=== PATIENT | male | born 1970 | race American Indian/Alaskan Native ===

== ENCOUNTER 2020-11-24 10:16 | Emergency (ER) | payer OTHER ==
[2020-11-24 10:26] VITALS: BP 135/88
--- NOTE | 2020-11-24 10:50 | Emergency Department Report ---
ED General Adult HPI - General Chief complaint: Back Pain/Injury Stated complaint: BACK PAIN Time Seen by Provider: 11/24/20 10:38 Source: patient Mode of arrival: Ambulatory Limitations: No Limitations - History of Present Illness Initial comments: 50-year-old -Citizen Of [place] male patient presents with complaints of low back pain x1 month. Patient denies any recent injuries, however states he has had recurrent chronic back pain due to an injury in 2017 involved in a herniated disc. He reports intermittent numbness in his right foot, but denies any weakness in his legs or saddle paresthesias, loss of bladder/bowel control, history of cancer, hematochezia/hematuria, or difficulty with ambulation. Patient states muscle relaxers and anti-inflammatories sometimes help. No abdominal pain per patient. -: Gradual - Related Data Previous Rx's Medication Instructions Recorded Last Taken Type Acetaminophen/Codeine [Tylenol 1 tab PO Q8H PRN #8 tab 11/24/20 Unknown Rx /Codeine # 3 tab] Diclofenac Sodium 75 mg PO BID PRN #14 tablet. 11/24/20 Unknown Rx methocarbamoL [Methocarbamol] 1,000 mg PO TID PRN #30 tablet 11/24/20 Unknown Rx Allergies Allergy/AdvReac Type Severity Reaction Status Date / Time No Known Allergies Allergy Unverified 11/24/20 10:23 ED Review of Systems ROS: Stated complaint: BACK PAIN Other details as noted in HPI Constitutional: denies: chills, fever, malaise Respiratory: denies: shortness of breath Cardiovascular: denies: chest pain Gastrointestinal: denies: abdominal pain, hematochezia Genitourinary: denies: urgency, dysuria, frequency, hematuria Musculoskeletal: back pain. denies: joint swelling, arthralgia Skin: denies: change in color Neurological: abnormal gait (Patient currently on crutches due to left foot fracture). denies: weakness Hematological/Lymphatic: denies: easy bruising ED Past Medical Hx - Past Medical History Previous Medical History?: No - Surgical History Past Surgical History?: No - Social History Smoking Status: Never Smoker Substance Use Type: None - Medications Home Medications: Home Medications Medication Instructions Recorded Confirmed Last Taken Type Acetaminophen/Codeine [Tylenol 1 tab PO Q8H PRN #8 tab 11/24/20 Unknown Rx /Codeine # 3 tab] Diclofenac Sodium 75 mg PO BID PRN #14 tablet. 11/24/20 Unknown Rx methocarbamoL [Methocarbamol] 1,000 mg PO TID PRN #30 tablet 11/24/20 Unknown Rx ED Physical Exam - General Limitations: No Limitations General appearance: alert, in no apparent distress - Head Head exam: Present: atraumatic, normocephalic - Eye Eye exam: Present: normal appearance - Respiratory Respiratory exam: Absent: respiratory distress - Cardiovascular Cardiovascular Exam: Present: regular rate - GI/Abdominal GI/Abdominal exam: Present: soft. Absent: tenderness - Back Exam Back exam: Present: full ROM, paraspinal tenderness (Lumbar), vertebral tenderness (Lumbar) - Expanded Back Exam Expanded Back exam: Absent: saddle anesthesia Back exam: Sciatic Notch Tenderness: Left, Right - Neurological Exam Neurological exam: Present: alert, oriented X3, other (Patient ambulatory via crutches; has boot on left foot). Absent: motor sensory deficit - Expanded Neurological Exam Expanded Sensory exam: Lower Extremity Light Touch: Normal Motor strength exam: RLE: 5, LLE: 5 - Psychiatric Psychiatric exam: Present: normal affect, normal mood - Skin Skin exam: Present: warm, dry, intact, normal color. Absent: rash, cyanosis, diaphoretic ED Course Vital Signs 11/24/20 10:23 Temperature 98.3 F Pulse Rate 68 Respiratory 20 Rate Blood Pressure 135/88 O2 Sat by Pulse 98 Oximetry ED Medical Decision Making - Radiology Data Radiology results: report reviewed LUMBOSACRAL SPINE 3 VIEWS INDICATION: pain, no injury. COMPARISON: None. IMPRESSION: Normal alignment. 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 A left lateral near bridging osteophyte is noted at L2-3. The SI joints are unremarkable. No acute osseous or soft tissue abnormality. - Medical Decision Making 50-year-old -Citizen Of [place] male patient presents with complaints of low back pain x1 month. Patient denies any recent injuries, however states he has had recurrent chronic back pain due to an injury in 2017 involved in a herniated disc. He reports intermittent numbness in his right foot, but denies any weakness in his legs or saddle paresthesias, loss of bladder/bowel control, history of cancer, hematochezia/hematuria, or difficulty with ambulation. Patient states muscle relaxers and anti-inflammatories sometimes help. No abdominal pain per patient. X-ray shows moderate DJD at all levels of the lumbar spine without any acute bony abnormalities. Will treat for sciatica with NSAIDs and muscle relaxers. Pain significantly improved with Toradol shot given here in ED per patient. Recommend follow-up with primary care doctor and physical therapy for further evaluation and treatment. Patient is otherwise well-appearing and stable for discharge home. Strict return precautions were discussed in detail with patient who verbalizes understanding. Critical care attestation.: If time is entered above; I have spent that time in minutes in the direct care of this critically ill patient, excluding procedure time. ED Disposition Clinical Impression: Low back pain with bilateral sciatica Qualifiers: Chronicity: chronic Back pain laterality: bilateral Qualified Code(s): M54.42 - Lumbago with sciatica, left side Disposition: TO HOME OR SELFCARE Is pt being admited?: No Condition: Stable Instructions: Sciatica Prescriptions: Diclofenac Sodium 75 mg PO BID PRN #14 tablet. PRN Reason: pain methocarbamoL [Methocarbamol] 1,000 mg PO TID PRN #30 tablet PRN Reason: muscle spasm/tightness Acetaminophen/Codeine [Tylenol /Codeine # 3 tab] 1 tab PO Q8H PRN #8 tab PRN Reason: Pain , Severe (7-10) Referrals: PRIMARY CARE, [Primary Care Provider] - 2-3 Days
[2020-11-24] MEDS ORDERED: KETOROLAC 60 MG/2 ML INJ IM ONE (10:59)
--- NOTE | 2020-11-24 11:44 | XRay Report ---
LUMBOSACRAL SPINE 3 VIEWS INDICATION: pain, no injury. COMPARISON: None. IMPRESSION: Normal alignment. Moderate discogenic DJD and facet arthropathy are identified at all l evels. A left lateral near bridging osteophyte is noted at L2-3. The SI joints are unremarkable. No acute osseous or soft tissue abnormality. Signer Name: Terrell Good Jr, MD Signed: 11/24/2020 11:39 AM Workstation Name: [id number]
== END 2020-11-24 13:32 | disposition home or self-care (01) ==
LOC: ED 10:16
DX: M54.42 Lumbago with sciatica, left side (principal); M54.41 Lumbago with sciatica, right side; Z79.899 Other long term (current) drug therapy
CPT/HCPCS: 72100; 96372; 99283; J1885